=== PATIENT | male | born 1995 | race Caucasian/White ===

== ENCOUNTER 2024-08-08 15:04 | Emergency (ER) | payer OTHER, SELFPAY ==
[2024-08-08 15:05] VITALS: BP 131/94; PULSE 99; RESP 20; TEMP 36.4; O2SAT 100; BMI 25.0
--- NOTE | 2024-08-08 15:25 | CM.ED ---
Social Work Date of referral: 08/08/2024 Reason for referral: No established PCP Referred by: Social Work Identification Patient provided consent to social work visit. Patient confirmed he is not established with a PCP. Bottle Dealer provided patient with a resource for PCP through [facility] which patient accepted. Elli Mattson, CONSULTING DATABASE ADMINISTRATOR, BOOKSTORE MANAGER
--- NOTE | 2024-08-08 15:43 | CT_ITS ---
PROCEDURE: BRAIN/HEAD WITHOUT CONTRAST 08/08/2024 REASON FOR EXAM: VILLEGAS TECHNIQUE: Head CT without intravenous contrast. Coronal and Sagittal reconstruction series were provided. One or more dose reduction techniques were used (e.g., Automated exposure control, adjustment of the mA and/or kV according to patient size, use of iterative reconstruction technique. COMPARISON: None FINDINGS: * ACUTE: No acute infarct or hemorrhage. No mass effect or herniation. * BRAIN PARENCHYMA: Signal intensities are within normal limits for age. * VENTRICLES/EXTRA-AXIAL SPACES: No hydrocephalus or extra-axial fluid collections. * EXTRACRANIAL STRUCTURES: Visualized osseous structures are normal. Soft tissues are normal. CT/Brain/Head without Contrast IMPRESSION: No acute intracranial abnormality. Reading [facility]
[2024-08-08] MEDS: Fluorescein 1 MG STRIP 1 STRIP OPHTHALMIC (15:45)
[2024-08-08] MEDS: Tetracaine 0.5% Ophthalmic Bottle 1 DRP OPHTHALMIC (15:45)
--- NOTE | 2024-08-08 15:55 | EX.ED.VIS.EY ---
HPI History of Present Illness Chief Complaint: Eye Problem Narrative Narrative: Chief complaint and HPI: 28-year-old male who is a type I diabetic presents for evaluation of pressure behind the bilateral eyes. Patient states that yesterday while working he developed pressure behind the eyes and headache. He states he became nauseous and had an episode where his vision went dark and he felt lightheaded. He states this was short-lived. He did not fall. Did not lose consciousness. Patient states that he left work. He states since then he has had pressure behind his bilateral eyes, mild headache, and nasal congestion. He denies any fever, chills, shortness of breath, chest pain, cough, tinnitus, ear pain. States his vision has been normal today. Patient states he has not seen an eye doctor since 2014. Review of systems: See HPI Medications: As listed on the chart Allergies: As listed on the chart PFSH: Per chart Vital signs: As listed on the chart. Reviewed. Physical exam: Gen: A&O x3, NAD Head: Normocephalic, atraumatic Eye: No periorbital swelling or ecchymosis, PERRL, no proptosis, no pain with extra ocular movements, EOMI intact, no lacerations, no sclera chemosis or injection, no foreign body, no teardrop pupil, no enophthalmos. Clear breath reflexes bilaterally with discomfort. Discs are sharp and well-defined. No evidence of swelling or pallor. No hemorrhages or exudates. Macula appears normal.A fluorescein dye was instilled bilaterally and under UV light no uptake was identified in either eye, negative Seidels sign. Intraocular pressures were 17 bilaterally. Visual Acuity 20/25 bilaterally. I did an ultrasound of the bilateral orbits at bedside. Unremarkable without retinal detachment, vitreous abnormality, or lens abnormality. Optic nerve sheath measured 3 mm bilaterally. ENT: TMs clear BL, moist mucous membranes, posterior oropharynx unremarkable, uvula midline, tonsils not enlarged, no tonsillar exudates, + nasal congustion, sinus tenderness to palpation over the frontal and maxillary sinuses. Neck: Trachea midline, No JVD, Full ROM, No meningismus CV: RRR, no murmurs, no peripheral edema Resp: Lungs CTA BL, no w/r/c GI: Abd soft, non-distended, non-tender, no r/r/g Musc: Full ROM, no deformity Skin: Warm, dry, no rash Neuro: Alert, oriented, grossly intact, sensation intact Psych: Cooperative, appropriate mood and affect [facility] Medical History (Updated 08/08/24 @ 16:[address] Jeffrey Lara, ) Diabetes 1.5, managed as type 1 Home Medications ?Medication ?Instructions ?Recorded ?Last Taken ?Type amoxicillin 875 mg-potassium 1 tab PO BID 10 days #20 tabs 08/08/24 Unknown Rx clavulanate 125 mg tablet insulin glargine 100 unit/mL 40 unit subcut DAILY 08/08/24 Unknown History subcutaneous solution (Lantus U-100 Insulin) Allergy/AdvReac Type Severity Reaction Status Date / Time No Known Allergies Allergy Verified 08/08/24 15:17 Social History Smoking Status: Current every day smoker tobacco type: e-cigarettes EXAM Physical Exam Const Vital Signs: 08/08/24 15:05 Temperature 97.5 F L Temperature Source Temporal Pulse Rate 99 Respiratory Rate 20 H Blood Pressure 131/94 H Blood Pressure Mean 106 Pulse Ox 100 Oxygen Delivery Method Room Air MDM MDM MDM Narrative Medical decision making narrative: 28-year-old male who is a type I diabetic presents for evaluation of pressure behind the bilateral eyes. Associated symptom is mild headache and nasal congestion. Also endorses a presyncopal episode that happened yesterday but not today. Patient has not seen an eye doctor since 2014 despite him being diabetic. His sugar is mildly elevated currently in the low 200s. Patient states that he did eat a meal prior to arrival and did not correct for this meal yet. This is likely the cause of his glucose. See physical exam findings. Eye exam is completely unremarkable. Visual acuity 20/25. Physical exam is unremarkable except for some sinus congestion and sinus tenderness. I suspect that his symptoms are likely secondary to a sinus infection. However given patient did have a presyncopal episode where he states he lost his vision for short amount of time will get CT head to rule out any intracranial abnormality although low suspicion. CT head negative for any acute intracranial abnormality. At this point in time, I suspect patient's symptoms are secondary to sinusitis. Will treat with Augmentin. First dose given here. He was told to follow-up with PCP and ophthalmology. He confirmed understanding of plan. Return precautions explained. Impression: 1. Sinusitis 2. Bilateral eye pressure Discharge Plan Triage Chief Complaint: Eye Problem ED Provider: Jeffrey Lara Dx/Rx/DC Orders Clinical Impression: Sinusitis, Concern about eye disease without diagnosis Instructions: ED Sinusitis (Antibiotic Treatment) Prescriptions: New amoxicillin-pot clavulanate 875-125 mg tablet 1 tab PO BID 10 Days Qty: 20 0RF No Action insulin glargine [Lantus U-100 Insulin] 100 unit/mL solution 40 unit subcut DAILY Primary Care Provider: Care Physician,No Primary Referrals: Marlon Thornton MD [Med Staff - Active Staff] - 3-5 Days Rafael Chun MD [Med Staff - Active Staff] - 3-5 Days Activity Restrictions/Additional Instructions: Tylenol and ibuprofen as needed for pain headache. Take all of your antibiotics. Take your next antibiotic this evening. Follow-up with the eye doctor as well as PCP. Return back to the ED if symptoms change worsen. Print Language: Citizen Of [place] Disposition Disposition: Home, Self Care
[2024-08-08] MEDS: Amox/Clavulanate 875 MG Tablet PO (17:02)
[2024-08-08 17:07] VITALS: BP 134/90; BP 135/90; PULSE 99; RESP 16; TEMP 36.6; O2SAT 97
[2024-08-08 17:49] LABS: Bedside Glucose 274 mg/dL (74-106)
== END 2024-08-08 17:08 | disposition home or self-care (01) ==
PROVIDERS: Emergency Provider Surgery; Visit Provider Surgery
DX: J32.9 Chronic sinusitis, unspecified (principal); E13.9 Other specified diabetes mellitus without complications; Z79.4 Long term (current) use of insulin; H57.89 Other specified disorders of eye and adnexa; F17.290 Nicotine dependence, other tobacco product, uncomplicated; Z91.199 Patient's noncompliance with other medical treatment and regimen due to unspecified reason
CPT/HCPCS: 70450; 82962; 99283

== ENCOUNTER 2024-12-08 17:12 | Emergency (ER) | payer SELFPAY ==
[2024-12-08 17:13] VITALS: BP 136/112; PULSE 109; RESP 18; TEMP 36.7; O2SAT 99; BMI 25.9
--- NOTE | 2024-12-08 18:30 | RAD_ITS ---
PROCEDURE: WRIST MIN 3 VIEWS 12/08/2024 REASON FOR EXAM: INJURY/PAIN TECHNIQUE: Procedure Code: RADWR Modality: DX Procedure: WRIST MIN 3 VIEWS Laterality: Right COMPARISON: None. FINDINGS: Bones: No acute bony abnormalities. Joints: No dislocations. Soft tissues: No soft tissue abnormalities. Other: RAD/Wrist min 3 Views IMPRESSION: No acute osseous abnormalities. Reading Location: [id number]
[2024-12-08 18:48] VITALS: BP 127/90; PULSE 92; RESP 18; TEMP 36.8; O2SAT 99
[2024-12-08] MEDS: Lidocaine 1% (20 ml mdv) 20 ML Vial INFILT (18:51)
[2024-12-08 18:53] LABS: Hematocrit 44.6 % (40-54); Hemoglobin 15.2 g/dL (13.0-16.5); Immature Granulocytes Count 0.030 X10^3/uL (0.0-0.0); Mean Corp Hgb Conc 34.1 g/dL (32-36); Mean Corpuscular Volume 86.3 fL (80-94); Mean Platelet Vol. 9.7 fl (6.2-12.0); NRBC Flagged by Analyzer 0 % (0-5); Platelet Count 388 K/mm3 (150-450); RBC Distribution Width CV 13.8 % (11.6-14.6); RBC Distribution Width SD 44.1 fl (35.1-43.9); Red Blood Count 5.17 M/mm3 (4.6-6.2); White Blood Count 9.1 K/mm3 (4.4-11.0)
[2024-12-08 19:00] VITALS: BP 124/81; PULSE 83; RESP 16; TEMP 36.6; O2SAT 99
[2024-12-08 19:27] LABS: Anion Gap 10 (5-15); BUN 16 mg/dL (4-19); BUN/Creat Ratio 18.0 RATIO (10-20); Calcium,Total 8.9 mg/dL (7.6-11.0); Carbon Dioxide 26.4 mmol/L (21.0-32.0); Chloride 98 mmol/L (98-108); Estimated Creatinine Clearance 141.61 ml/min (50-250); Glucose 220 mg/dL (70-99); Potassium 3.9 mmol/L (3.3-5.1)
--- NOTE | 2024-12-08 19:54 | EX.ED.DYSGE1 ---
HPI History of Present Illness Chief Complaint: General Illness Detail of Chief Complaint: Infected puncture wound volar surface right wrist Onset/Context/Timing Onset: Weeks (Puncture wound 3 weeks ago. Trouble with blood sugars past couple of days and infected now.) Quality: Purulent drainage puncture wound Location: Volar right wrist Current Severity: Mild Maximum Severity: Mild Worsened by: Patient has problems with healing due to diabetes. Blood sugar elevated Relieved by: Nothing Associated Symptoms Associated Symptoms: Elevated blood sugar from baseline Narrative Narrative: Patient is a 29-year-old slvrz-oqqt-uwxznolk male. He had a puncture wound to his right wrist that occurred 3 weeks ago. He is concerned may be retained metallic foreign body. He states he has had increased pain over the wrist. There is now some slight redness swelling and drainage. He states his blood sugars normally run low 100s. They been running greater than 200. He is concerned that he is getting a systemic infection. He denies traumatic fever, heart murmur or mitral valve prolapse. He has no history of drug use. He has had prior history of wounds have taken excess amount of time to heal because of his diabetes. Prior similar symptoms: Yes Recent Illness/Hospitalization: No [facility] Medical History Foreign body in left lower extremity Bursitis of left shoulder Diabetes 1.5, managed as type 1 Home Medications ?Medication ?Instructions ?Recorded ?Last Taken ?Type amoxicillin 875 mg-potassium 1 tab PO BID 10 days #20 tabs 08/08/24 Unknown Rx clavulanate 125 mg tablet insulin glargine 100 unit/mL 40 unit subcut DAILY 08/08/24 Unknown History subcutaneous solution (Lantus U-100 Insulin) Allergy/AdvReac Type Severity Reaction Status Date / Time No Known Allergies Allergy Verified 12/08/24 17:15 Surgical History S/P arthroscopic partial medial meniscectomy of right knee History of tonsillectomy Social History Smoking Status: Current every day smoker tobacco type: e-cigarettes ROS ROS ED Constitutional Constitutional ED: Reports fever(s) and subjective; Denies chills or sweats Eyes Eyes: Denies blurry vision or change in vision Cardiovascular Cardiovascular: Denies palpitations or racing heartbeat Respiratory/Chest Respiratory/Chest: Denies cough or dyspnea Gastrointestinal Gastrointestinal: Denies nausea or vomiting Genitourinary Genitourinary ED: Denies dysuria, hematuria or urinary frequency Integumentary Reports abscess and rash Neurologic Neurologic: Denies headache(s), paresthesias or weakness Hematologic/Lymphatic Hematologic/Lymphatic: Reports systems reviewed and no addt'l complaints, except as documented EXAM Physical Exam Const Vital Signs: 12/08/24 17:13 12/08/24 17:34 12/08/24 18:48 Temperature 98.1 F 98.2 F Temperature Source Oral Oral Pulse Rate 109 H 92 Respiratory Rate 18 18 Respiratory Effort Normal Non-Labored Respiratory Pattern Normal Blood Pressure 136/112 H 127/90 H Blood Pressure Mean 120 102 Pulse Ox 99 99 Oxygen Delivery Method Room Air Room Air 12/08/24 19:00 Temperature 97.9 F Temperature Source Oral Pulse Rate 83 Respiratory Rate 16 Respiratory Effort Respiratory Pattern Blood Pressure 124/81 H Blood Pressure Mean 95 Pulse Ox 99 Oxygen Delivery Method Room Air Positive well nourished and well developed Constitutional Narrative: Vital signs noted and unremarkable. General Appearance ED: well developed and NAD HEENT Reports moist mucous membranes HEENT Narrative: Head is atraumatic normocephalic. Ears normal. Nares patent. Eyes PERRL and EOMs intact bilaterally General Eye ED: Negative for pale conjunctiva or scleral icterus Neck no lymphadenopathy and supple Resp normal respiratory effort and clear to auscultation bilaterally Cardio regular rate, regular rhythm, S1 normal heart sound, S2 normal heart sound and no murmurs Extremity Negative for normal to inspection Extremity Narrative: Patient has an eschar with fluctuance noted under the eschar and surrounding erythema. There is no lymphangitis. There is no epitrochlear or axillary lymphadenopathy. Median, radial and ulnar nerve function intact. He has no pain with passive flexion or extension of his fingers. Neuro oriented x3 and CN's II-XII intact bilaterally Sensorium / Orientation: alert Motor Exam: strength 5/5 throughout Psych mental status grossly normal Skin No no wounds Skin Narrative: Abscess volar surface right wrist MDM MDM MDM Narrative Medical decision making narrative: Since patient is diabetic with elevated blood sugars we will obtain BMP to assess glucose and CO2 anion gap and renal function to determine if antibiotic doses need to be adjusted. Also obtain CBC because of it complaint of subjective fever. Lab Data Attestation: I reviewed the patient's lab results. Lab results narrative: CBC is unremarkable. Basic metabolic panel was elevated glucose of 220 with a normal CO2 and anion gap. Labs: Laboratory Results - last 24 hr 12/08/24 18:39 WBC 9.1 RBC 5.17 Hgb 15.2 Hct 44.6 MCV 86.3 MCH 29.4 MCHC 34.1 RDW Std Deviation 44.1 H RDW Coeff of Efra 13.8 Plt Count 388 MPV 9.7 Immature Gran % (Auto) 0.300 Neut % (Auto) 59.4 Lymph % (Auto) 27.1 [place] % (Auto) 8.8 Eos % (Auto) 3.7 Baso % (Auto) 0.7 Absolute Neuts (auto) 5.4 Absolute Lymphs (auto) 2.47 Nucleated RBC % 0 Sodium 135 Potassium 3.9 Chloride 98 Carbon Dioxide 26.4 Anion Gap 10 BUN 16 Creatinine 0.86 Estim Creat Clear Calc 141.61 Est GFR (MDRD) Non-Af 122 BUN/Creatinine Ratio 18.0 Glucose 220 H Calcium 8.9 Radiography Chest X-Ray - ED: Read by ED Physician (Three-view x-ray of the right wrist reveals no foreign body.) Diagnostic Testing: Clinical Impression(s) from Imaging Studies Wrist X-Ray 12/08/24 18:30 IMPRESSION: No acute osseous abnormalities. Reading Location: [facility] Procedures Other Procedures Procedure(s): I&D abscess volar surface right wrist: Patient was prepped draped sterile manner. The area was anesthetized. He required additional anesthetic once the eschar was unroofed. There was purulent material. Culture was obtained. The wound was debrided down to viable tissue. The wound was irrigated with normal saline. Nurse applied dressing. He was treated with cephalexin and Bactrim to cover for both streptococcal and staphylococcal infection and MRSA. Discharge Plan Triage Chief Complaint: General Illness Other Complaint: Wound ED Provider: Colby Keller Dx/Rx/DC Orders Clinical Impression: Cutaneous abscess of right wrist, Type 1 diabetes mellitus with hyperglycemia Instructions: ED Abscess Incision And Drainage Prescriptions: No Action insulin glargine [Lantus U-100 Insulin] 100 unit/mL solution 40 unit subcut DAILY amoxicillin-pot clavulanate 875-125 mg tablet 1 tab PO BID 10 Days Qty: 20 0RF Stand Alone Forms: ED Work / School Excuse Primary Care Provider: Care Physician,No Primary Referrals: Care Physician,No Primary [Primary Care Provider, Medical] Doctor,Your [Non-Staff, None] Activity Restrictions/Additional Instructions: 1. Keep wound absolutely clean and dry for the next 48 hours. 2. Take antibiotics till gone. 3. Follow-up with your doctor for wound check in 2 to 3 days Print Language: Icelandic Disposition Disposition: Home, Self Care
[2024-12-08] MEDS: Smz/Tmp Ds Tablet 1 TABLET PO (20:13)
[2024-12-08 20:16] VITALS: BP 132/74; PULSE 78; RESP 16; TEMP 36.6; O2SAT 99
== END 2024-12-08 20:17 | disposition home or self-care (01) ==
PROVIDERS: Emergency Provider Emergency Medicine; Visit Provider Emergency Medicine
DX: L02.413 Cutaneous abscess of right upper limb (principal); E10.65 Type 1 diabetes mellitus with hyperglycemia; F17.290 Nicotine dependence, other tobacco product, uncomplicated
CPT/HCPCS: 10060; 73110; 80048; 85025; 87070; 87077; 87186; 87205; 99285

== ENCOUNTER 2025-01-04 09:43 | Inpatient (IN) | payer SELFPAY ==
[2025-01-04] VITALS (16 sets, daily range): BP systolic 113–147; BP diastolic 66–100; PULSE 73–101; RESP 13–22; TEMP 36.4–36.7; O2SAT 97–100; BMI 26.0; BMI 25.7
--- NOTE | 2025-01-04 09:51 | EX.ED.DYSGE1 ---
HPI History of Present Illness Chief Complaint: Hyperglycemia Narrative Narrative: 29-year-old male presents with nausea and vomiting and concern for DKA. He is an insulin-dependent diabetic and states that he usually takes 41 units of his long-acting insulin in the morning and is on sliding scale otherwise. He states last time he was in DKA was about a year ago when he was hospitalized at [facility]. Yesterday morning he woke at 330 with nausea and vomiting. He states that his blood sugar was elevated in the 600s. He slowly brought it down by himself. This morning it was appropriate at 144. This was before he ate breakfast. He took his long-acting insulin, ate breakfast, and when he checked it at work it was in the 400s. He is nauseated but has not vomited today. He states he does not feel well. He thinks he may be close to being in diabetic ketoacidosis. Prior similar symptoms: Yes PFSH PFS Medical History Foreign body in left lower extremity Bursitis of left shoulder Diabetes 1.5, managed as type 1 Home Medications Medication Instructions Recorded Last Taken Type insulin glargine 100 unit/mL 40 unit subcut DAILY diabetes 08/08/24 Unknown History subcutaneous solution (Lantus U-100 Insulin) Allergy/AdvReac Type Severity Reaction Status Date / Time No Known Allergies Allergy Verified 01/04/25 09:44 Surgical History S/P arthroscopic partial medial meniscectomy of right knee History of tonsillectomy Social History Smoking Status: Current every day smoker tobacco type: e-cigarettes ROS ROS ED ROS Narrative Review of systems positive for nausea and vomiting yesterday-resolved. Elevated blood sugars yesterday and today. No fevers or chills. Generalized fatigue and malaise. EXAM Physical Exam Narrative Exam Narrative: Afebrile. Vital signs noted. Nontoxic-appearing. Cardiovascular examination reveals mild tachycardia at 101 bpm. Lungs are clear to auscultation bilaterally. Minimal tachypnea. Abdomen is soft and nontender without guarding or rebound. Mucous membranes slightly tacky to moist. Neurological examination nonfocal, nonlateralizing. Moves all extremities. Const Vital Signs: 01/04/25 09:43 01/04/25 10:20 Temperature 97.6 F L Temperature Source Temporal Pulse Rate 101 H Respiratory Rate 20 H Respiratory Pattern Normal Blood Pressure 147/100 H Blood Pressure Mean 115 Pulse Ox 99 Oxygen Delivery Method Room Air MDM MDM MDM Narrative Medical decision making narrative: Differential diagnosis includes but not limited to diabetic hyperglycemia versus dehydration versus diabetic ketoacidosis. He may have other electrolyte abnormality as well. Patient bolused normal saline 1 L intravenously. DKA workup was pursued. This includes venous blood gas. I reviewed his venous blood gas and he has a pH of 7.4 and is not acidotic. I reviewed his laboratory work and he has normal white count of 7.4 with hemoglobin 14.5, platelet count normal at 365. CMP is consistent with hyperglycemia with a glucose of 723 resulting in low sodium of 126 and chloride 92. He was started on IV bolus. Potassium 4.5. Alk phos is slightly elevated 158 which I think is nonspecific, beta hydroxybutyric acid is elevated at 1.6. Urinalysis shows 15 ketones but no evidence of infection. EKG was obtained and interpreted by myself independently as normal sinus rhythm at 89 bpm without ectopy or acute ST changes. No STEMI. At this point in time, he is started on an insulin drip at 0.5 units/kg/h. I discussed the patient with Dr. Rizvi for admission to the ICU. Critical care time 31 minutes. Disposition is admit. Patient in stable condition. History & Record Review Discussion w/independent historian: Patient Additional record(s) reviewed:: Prior ED visit Lab Data Attestation: I reviewed the patient's lab results. Labs: Laboratory Results - last 24 hr 01/04/25 01/04/25 09:58 10:34 WBC 7.4 RBC 4.80 Hgb 14.5 Hct 41.8 MCV 87.1 MCH 30.2 MCHC 34.7 RDW Std Deviation 43.8 RDW Coeff of Efra 13.8 Plt Count 365 MPV 10.1 Immature Gran % (Auto) 0.300 Neut % (Auto) 71.1 H Lymph % (Auto) 17.3 L [place] % (Auto) 6.7 Eos % (Auto) 3.9 Baso % (Auto) 0.7 Absolute Neuts (auto) 5.3 Absolute Lymphs (auto) 1.28 Nucleated RBC % 0 Sodium 126 L Potassium 4.5 Chloride 92 L Carbon Dioxide 21.3 Anion Gap 13 BUN 22 H Creatinine 1.01 Estim Creat Clear Calc 120.58 Est GFR (MDRD) Non-Af 105 BUN/Creatinine Ratio 22.1 H Glucose 723 H* Calcium 8.7 Total Bilirubin 0.32 AST 32 ALT 27 Alkaline Phosphatase 158 H Total Protein 6.0 Albumin 3.7 Globulin 2.4 Albumin/Globulin Ratio 1.6 b-Hydroxybutyric mmol/L 1.6 H Urine Color Straw Urine Clarity Clear Urine pH 6.0 Ur Specific [place] 1.010 Urine Protein Negative Urine Glucose (UA) 1000 H Urine Ketones 15 H Urine Occult Blood Negative Urine Nitrite Negative Urine Bilirubin Negative Urine Urobilinogen Normal Ur Leukocyte Esterase Negative Urine RBC 0 SEEN Urine WBC 0-5 SEEN Ur Squamous Epith Cells 0 SEEN Urine Bacteria 0 SEEN Urine Mucus 0 SEEN ABG Data ABG results: ABG 01/04/25 10:13 Specimen Type HERNESTO Sample Site Not entered VBG pH 7.43 H VBG pO2 91 H VBG HCO3 25 VBG Total CO2 26 VBG O2 Sat (Calc) 97 H VBG Base Excess 1 POC Mix VBG pCO2 Pt Tmp 37.4 L O2 Delivery Device Not entered Management Discussion w/another healthcare provider: Hospitalist (Dr. Rizvi) Critical Care Time Critical Care Time: Yes Critical care time (excluding procedures): 30-74 minutes (31), Including time spent:, Discussing w/Patient &/or Family/Semiconductor Assembler, Discussing w/Consultants, Arranging Admission or Transfer and Performing Direct Patient Care at Bedside Discharge Plan Dx/Rx/DC Orders Clinical Impression: Hyperglycemia due to diabetes mellitus, Hyponatremia, Nausea and vomiting Disposition Disposition: [facility] Discharge Date/Time: 01/04/25 12:31
--- NOTE | 2025-01-04 10:00 | EKG12_ITS ---
Test Reason : HYPERGLYCEMIA Blood Pressure : */* mmHG Vent. Rate : 89 BPM Atrial Rate : 89 BPM P-R Int : 142 ms QRS Dur : 92 ms QT Int : 356 ms P-R-T Axes : 59 55 39 degrees QTcB Int : 433 ms Normal sinus rhythm Normal ECG Confirmed by IONA GARCIA, ERIC ([id number]), photograph editor DARLYN HAN ([id number]) on 01/05/2025 10:48:30 AM Referred By: TB Confirmed By: ERIC MONSON MD
[2025-01-04 10:09] LABS: Hematocrit 41.8 % (40-54); Hemoglobin 14.5 g/dL (13.0-16.5); Immature Granulocytes Count 0.020 X10^3/uL (0.0-0.0); Mean Corp Hgb Conc 34.7 g/dL (32-36); Mean Corpuscular Volume 87.1 fL (80-94); Mean Platelet Vol. 10.1 fl (6.2-12.0); NRBC Flagged by Analyzer 0 % (0-5); Platelet Count 365 K/mm3 (150-450); RBC Distribution Width CV 13.8 % (11.6-14.6); RBC Distribution Width SD 43.8 fl (35.1-43.9); Red Blood Count 4.80 M/mm3 (4.6-6.2); White Blood Count 7.4 K/mm3 (4.4-11.0)
[2025-01-04] MEDS: 0.9% Normal Saline (1000mL) 1,000 ML 999 ML IV ×2 (10:16→13:16)
[2025-01-04 10:17] LABS: SITE Not entered; VBG BASE EXCESS 1 mmol/L (-1.0-3.5); VBG PO2 91 mmHg (25-40); VBG SO2 97 % (50-70); VBG TCO2 26 mmol/L (23-33)
[2025-01-04 10:39] LABS: Mucous, Urine 0 SEEN /hpf (<or=2+); Red Blood Cells-Urine 0 SEEN /hpf (0-5); Squamous Epithelial Cells - UA 0 SEEN /hpf (0-5)
[2025-01-04 10:47] LABS: Color, Urine Straw (Yellow); Glucose, Dipstick 1000 mg/dl (Normal); Ketone-Dipstick 15 mg/dl (Negative); Leukocyte Esterase-Dipstick Negative /ul (Negative); Nitrite-Dipstick Negative (Negative); Occult Blood-Urine Negative /ul (Negative); Protein-Dipstick Negative (Negative); Specific Gravity, Urine 1.010 (1.002-1.030); Urine Bilirubin Dipstick Negative (Negative)
[2025-01-04 10:48] LABS: BETA-HYDROXYBUTYRATE 1.6 mmol/L (0.0-0.3)
[2025-01-04 10:50] LABS: AST(SGOT) 32 U/L (<=37); Alanine Aminotransfer ALT/SGPT 27 U/L (<=46); Albumin, Serum 3.7 g/dL (3.5-5.0); Alkaline Phosphatase 158 U/L (40-129); Anion Gap 13 (5-15); BUN 22 mg/dL (4-19); BUN/Creat Ratio 22.1 RATIO (10-20); Calcium,Total 8.7 mg/dL (7.6-11.0); Carbon Dioxide 21.3 mmol/L (21.0-32.0); Chloride 92 mmol/L (98-108); Estimated Creatinine Clearance 120.58 ml/min (50-250); Globulin 2.4 g/dL (2.2-4.2); Glucose 723 mg/dL (70-99); Potassium 4.5 mmol/L (3.3-5.1)
--- NOTE | 2025-01-04 11:45 | ED.RN ---
This Rn called pharmacist Chanda to discuss confusion about insulin drip order. Order showed that drip should be started at 4.357 ml/hr but DKA protocol states that the drip would start at 13.8/hr. Order did show that drip is not for DKA protocol. Chanda stated that she also discussed this with her sports manager and confirmed the dosing and per Dr. Lee's note he wanted insulin drip to start at 0.5unit/kg/hr.
[2025-01-04] MEDS: Insulin Lispro 100 UNIT in 0.9% Normal Saline (100mL Bag) 99 ML CONT INF (11:50)
[2025-01-04] MEDS: KCL 20MEQ in 0.9% NS 20 MEQ/1,000 ML IV.SOLN. 250 MEQ IV (13:33)
[2025-01-04 13:37] LABS: Glucose 600 mg/dL (70-99)
--- NOTE | 2025-01-04 13:40 | NURSING ---
Patient arrived from ED with insulin drip running at 4.4 units/hr, reviewed the nomogram and the insulin orders with Becca vocational coordinator. ED insulin gtt order was for non-DKA and to run at 4.4 units/hr. Insulin drip order from Dr. Rizvi was for DKA, therefore we titrated the insulin drip based on the nomogram for patients' weight and glucose. Insulin drip now running at 13.8 units/hr. Dr. Rizvi made aware.
--- NOTE | 2025-01-04 13:45 | NURSING ---
stat serum glucose from 1245 not resulted until 1340, reviewed nomogram with Becca health education coordinator and called Leonarda clinical bank manager in pharmacy for clarification on correct action with nomogram for insulin drip. After further discussion, decision was made to titrate drip to 10.4 units/hr.
[2025-01-04] MEDS: 0.9% Saline Lock 10 ML Syringe IV ×2 (13:56→21:43)
[2025-01-04] MEDS: Insulin Lispro 100 UNIT in 0.9% Normal Saline (100mL Bag) 99 ML 10.4 UNIT CONT INF (14:10)
[2025-01-04 14:53] LABS: Anion Gap 10 (5-15); Carbon Dioxide 25.1 mmol/L (21.0-32.0); Chloride 101 mmol/L (98-108); Magnesium 1.8 mg/dL (1.5-2.2); Potassium 3.4 mmol/L (3.3-5.1)
[2025-01-04] MEDS: Dext 5%-0.45% NS 1,000 ML 150 ML IV (15:03)
--- NOTE | 2025-01-04 15:17 | HP.PCM.HOS_ITS ---
HPI - General General Date of Admission: 01/04/25 HPI Narrative JOSEPH BELLA, is a 29 M who presents to the hospital with nausea and vomiting. He was feeling unwell over the last 24 to 48 hours so he presented to the hospital because he felt similar to the last time he had DKA. VBG demonstrated a pH of 7.43, beta hydroxybutyrate was 1.6 and electrolytes were fairly unremarkable, he did not have an anion gap acidosis but his blood sugar on admission was over 700. He did have some slight ketones in his urine and his urine glucose was thousand. He received 1 L bolus in the emergency room prior to admission. He denies any recent illnesses he states that he did have a hand infection that was treated 3 weeks ago. FORMERLY [facility] Medical History Foreign body in left lower extremity Bursitis of left shoulder Diabetes 1.5, managed as type 1 Home Medications Medication Instructions Recorded Last Taken Type insulin glargine 100 unit/mL 40 unit subcut DAILY diab etes 08/08/24 Unknown History subcutaneous solution (Lantus U-100 Insulin) Allergy/AdvReac Type Severity Reaction Status Date / Time No Known Allergies Allergy Verified 01/04/25 09:44 Family History (Updated 01/04/25 @ 15:[address] Carmelo Rizvi MD) Other Diabetes Heart disease Surgical History S/P arthroscopic partial medial meniscectomy of right knee History of tonsillectomy Social History Smoking Status: Current every day smoker tobacco type: e-cigarettes ROS Constitutional Constitutional: Reports fatigue and malaise; Denies chills or fever(s) Eyes Eyes: Denies blurry vision ENT HEENT: Denies headache(s) or nasal discharge Cardiovascular Cardiovascular: Denies chest pain, dyspnea on exertion or syncope Respiratory/Chest Respiratory/Chest: Denies cough, shortness of breath at rest or shortness of breath with exertion Gastrointestinal Gastrointestinal: Reports nausea and vomiting; Denies constipation or diarrhea Genitourinary Genitourinary: Denies dysuria Neurologic Neurologic: Denies focal weakness, numbness or tremor(s) Psychiatric Psychiatric: Denies anxiety or depression Vital Signs Vital Signs Vital Signs: 01/04/25 09:43 01/04/25 10:20 01/04/25 11:35 Temperature 97.6 F L 97.9 F Temperature Source Temporal Pulse Rate 101 H 79 Respiratory Rate 20 H 16 Respiratory Effort Respiratory Depth Respiratory Pattern Normal Blood Pressure 147/100 H 127/86 H Blood Pressure Mean 115 99 Blood Pressure Source Blood Pressure Position Blood Pressure Location Pulse Ox 99 100 Oxygen Delivery Method Room Air 01/04/25 12:15 01/04/25 12:15 01/04/25 12:30 Temperature Temperature Source Pulse Rate 80 80 Respiratory Rate 21 H Respiratory Effort Normal Non-Labored Respiratory Depth Normal Respiratory Pattern Normal Blood Pressure 131/85 H Blood Pressure Mean 100 Blood Pressure Source Monitor Blood Pressure Position Semi-Fowlers Blood Pressure Location Left Arm Pulse Ox 97 Oxygen Delivery Method Room Air Room Air 01/04/25 12:30 01/04/25 12:45 01/04/25 13:00 Temperature Temperature Source Pulse Rate 90 82 81 Respiratory Rate 13 18 20 H Respiratory Effort Respiratory Depth Respiratory Pattern Blood Pressure 136/96 H 128/87 H 125/93 H Blood Pressure Mean 109 100 103 Blood Pressure Source Monitor Monitor Monitor Blood Pressure Position Semi-Fowlers Semi-Fowlers Semi-Fowlers Blood Pressure Location Left Arm Left Arm Left Arm Pulse Ox 100 100 100 Oxygen Delivery Method Room Air Room Air Room Air 01/04/25 14:00 Temperature Temperature Source Pulse Rate 92 Respiratory Rate 22 H Respiratory Effort Respiratory Depth Respiratory Pattern Blood Pressure 127/90 H Blood Pressure Mean 102 Blood Pressure Source Monitor Blood Pressure Position Semi-Fowlers Blood Pressure Location Left Arm Pulse Ox 98 Oxygen Delivery Method Room Air Weight Weight: 184 lb 8.43 oz Body Mass Index (BMI) 25.7 Physical Exam Narrative General: Alert, Oriented x3, Cooperative, No apparent distress HEENT: Atraumatic, PERRLA, EOMI, Normocephalic Oral: Dry mucosa Neck: Supple, No JVD Lungs: Clear to auscultation, Normal air movement, No rhonchi, No wheeze, No rales Cardiovascular: Regular rate, Regular Rhythm, Normal S1, Normal S2, No murmurs Abdomen: Soft, Non Tender, Non-Distended, No Hepato-splenomegaly Extremities: No edema, Capillary Refill Less than 3 Seconds Skin: No rashes, No breakdown Musculoskeletal: No Tenderness to Palpation of Joints or Extremities Neurological: No focal neurological deficits, Motor Exam 5/5 strength throughout, Sensory exam intact to light touch and pain Psych/Mental Status: Normal Affect, Appropriate Results Lab / Micro Data 01/04/25 09:58 01/04/25 13:50 Labs: Laboratory Results - last 24 hr 01/04/25 09:58: WBC 7.4, RBC 4.80, Hgb 14.5, Hct 41.8, MCV 87.1, MCH 30.2, MCHC 34.7, RDW Std Deviation 43.8, RDW Coeff of Efra 13.8, Plt Count 365, MPV 10.1, Immature Gran % (Auto) 0.300, Neut % (Auto) 71.1 H, Lymph % (Auto) 17.3 L, [place] % (Auto) 6.7, Eos % (Auto) 3.9, Baso % (Auto) 0.7, Absolute Neuts (auto) 5.3, Absolute Lymphs (auto) 1.28, Nucleated RBC % 0, Sodium 126 L, Potassium 4.5, C hloride 92 L, Carbon Dioxide 21.3, Anion Gap 13, BUN 22 H, Creatinine 1.01, Estim Creat Clear Calc 120.58, Est GFR (MDRD) Non-Af 105, BUN/Creatinine Ratio 22.1 H, Glucose 723 H*, Calcium 8.7, Total Bilirubin 0.32, AST 32, ALT 27, A lkaline Phosphatase 158 H, Total Protein 6.0, Albumin 3.7, Globulin 2.4, Albumin/Globulin Ratio 1.6, b-Hydroxybutyric mmol/L 1.6 H 01/04/25 10:34: Urine Color Straw, Urine Clarity Clear, Urine pH 6.0, Ur Specific [place] 1.010, Urine Protein Negative, Urine Glucose (UA) 1000 H, Urine Ketones 15 H, Urine Occult Blood Negative, Urine Nitrite Negative, Urine Bilirubin Negative, Urine Urobilinogen Normal, Ur Leukocyte Esterase Negative, Urine RBC 0 SEEN, Urine WBC 0-5 SEEN, Ur Squamous Epith Cells 0 SEEN, Urine Bacteria 0 SEEN, Urine Mucus 0 SEEN 01/04/25 11:31: POC Glucose > 500 H* 01/04/25 12:36: POC Glucose > 500 H* 01/04/25 12:45: Glucose 600 H* 01/04/25 13:50: Sodium 136, Potassium 3.4, Chloride 101, Carbon Dioxide 25.1, Anion Gap 10, Phosphorus 2.8, Magnesium 1.8 01/04/25 14:49: POC Glucose 141 H ABG Data ABG results: ABG 01/04/25 10:13 Specimen Type HERNESTO Sample Site Not entered VBG pH 7.43 H VBG pO2 91 H VBG HCO3 25 VBG Total CO2 26 VBG O2 Sat (Calc) 97 H VBG Base Excess 1 POC Mix VBG pCO2 Pt Tmp 37.4 L O2 Delivery Device Not entered Assessment & Plan Assessment/Plan (1) DKA (diabetic ketoacidoses): PLAN: Plan 1. DKA – Continue with DKA protocol with insulin drip and IV fluids – Anion gap is closed however he is still severely hyperglycemic –No leukocytosis or fever to indicate infection – VBG with a pH of 7.43 – Renal function and electrolytes are stable at the moment DVT: Ambulation 60 minutes was spent on direct patient care, including documentation as well as chart review and collaboration with colleagues Charges/Coding Visit Charges Inpatient E&M: 13781 Init Hosp L2
--- NOTE | 2025-01-04 15:48 | CM.ED ---
Social Work SW met with patient due to registration noting to be inactive. Patient stated that he has been at his job for 90 days and he received his insurance card in the mail but wasnt sure when it would actually be active. SW offered to have Medicaid specialist meet with patient, patient declined stating he makes too much money. Registration later confirmed that patients insurance will be active later this month. No further needs at this time. Gabi Johnson, ANIMAL NUTRITION CONSULTANT, BAKERY TEAM MEMBER
[2025-01-04] MEDS: KCL 20MEQ in 0.9% NS 20 MEQ/1,000 ML IV.SOLN. 100 MEQ IV ×2 (16:21→23:10)
[2025-01-04] MEDS: Insulin Glargine-YFGN 100 UNIT/ML Pen 10 UNIT SC (16:57)
[2025-01-05] VITALS (10 sets, daily range): BP systolic 105–128; BP diastolic 71–87; PULSE 74–104; RESP 13–19; TEMP 36.8; O2SAT 94–100; BMI 26.5
[2025-01-05 05:25] LABS: Anion Gap 7 (5-15); BUN 11 mg/dL (4-19); BUN/Creat Ratio 16.6 RATIO (10-20); Calcium,Total 7.9 mg/dL (7.6-11.0); Carbon Dioxide 25.5 mmol/L (21.0-32.0); Chloride 104 mmol/L (98-108); Estimated Creatinine Clearance 181.81 ml/min (50-250); Glucose 236 mg/dL (70-99); Potassium 4.1 mmol/L (3.3-5.1)
[2025-01-05] MEDS: KCL 20MEQ in 0.9% NS 20 MEQ/1,000 ML IV.SOLN. 100 MEQ IV (05:50)
--- NOTE | 2025-01-05 09:06 | DCINST_ITS ---
Discharge Instructions DC O2, CPAP, BIPAP needs Home O2 Discharge instructions: No Dressing / Incision Discharge Activity: Return to Normal Activity Dressing / Incision Call your doctor if you observe: Fever of 101 or Higher, Shortness of breath, Dizziness, Fainting spells, Swelling in the ankles, Chest pain and Increased palpitations (irregular heartbeat) Follow Up Care Test Results: Test results from this visit will be discussed in further detail at your follow- up appointment, if applicable. Discharge Plan Admission Admit Date/Time: 01/04/25 11:03 Attending Provider: Carmelo Rizvi Primary Care Provider: Care PhysicianRadha Primary Instructions Patient Instructions: Diabetes Food Tips Ch, Diabetes Carbs Fats Protein Additional Instructions / Restrictions: Will have you follow-up with primary care here in the area my to help stabilize your blood sugars and ultimately provide you with referral for endocrinology if necessary Discharge Orders/Prescriptions Prescriptions: Continued insulin glargine [Lantus U-100 Insulin] 100 unit/mL solution 40 unit subcut DAILY Referrals / Follow Up: Care Physician,No Primary [Primary Care Provider, Medical] Disposition Disposition (needs filled in before D/C Order can be placed): Home, Self Care
--- NOTE | 2025-01-05 10:16 | CASEMGMT ---
Discharge Planning A list of PCP providers including quality and resource use data and consistent with the patient's preferred geographic region, medical needs, and insurance network was created in [facility] Guide. This list was provided to the RN CM. Jennifer Paiz, Discharge Planning Asst.
[2025-01-05] MEDS: Insulin Glargine-YFGN 100 UNIT/ML Pen 40 UNIT SC (10:45)
--- NOTE | 2025-01-05 10:58 | CASEMGMT ---
LINDA BURLESON ASSESSMENT RN CM to room to meet with patient for initial transition planning/care coordination assessment. LINDA BURLESON introduced self and role at [facility]. Pt voices understanding and consents to assessment at this time. Pt resting in bed in no distress at this time. Pt is A/O at this time and answers all questions appropriately. Care providers, pharmacy, and demographics verified/updated at this time. Strata: 2 PCP: No PCP. Pt provided w/VSC info as well as local Physician's Directory. Pt also provided w/list of [employer] providers in both [place] and [place] areas that was prepared by Jennifer discharge insurance account assistant. Specialists: none Preferred Pharmacy: [facility] [place] Insurance: None currently. Per ED SW, pt's insurance to go into effect 01/15/25. Per pt, it will be [employer]. Prescription Benefit: None currently. LNOK: Sig other, Sugey Garzon is only listed contact. Discussed LNOK. His parents are not living. He states he has 2 living siblings, but has no communication with them. Discussed HCPOA & information provided. Pt does not wish to complete HCPOA at this time. Made aware, if he decides he would like to complete in the future that SW @ [facility] can assist w/this as an out-pt. He voices understanding. Living Arrangements: Lives w/Sugey and their son, who will be turning 1 at the end of the month. Independent. Works full-time. Transportation: Pt states drives self and states no transportation concerns at this time. Carina also drives. Pt confirms he has transportation home. DME: Pt has a functioning glucometer. He is not sure how many strips he has left. He is not sure what the brand of his glucometer is, but states if they are too expensive to purchase for his current glucometer, he is aware of option to purchase another glucometer OTC and OTC strips & states would be able to afford doing that. He has plenty of lancets. Insulin: Pt states he has sufficient supply of Lantus (3 pens remaining), but only has 1 Humalog pen left, and states he is pretty certain he is going to run out of it before his insurance goes into effect. He does not think he has any refills remaining. Call placed to [facility] pharmacy. There are refills remaining on the insulin lispro (Humalog). [place] st[place]ffer is $127. They can apply discount card and cost would be $68. Pt made aware & states this is affordable. The pharmacy also stated they would need to order this medication in & to have pt call to have it filled a couple days before he runs out. Pt made aware. He states would like to have it filled now, to avoid risk of them not getting it in time before he runs out. He states he will go pick it up soon, stating he is pretty sure they will hold it for him for about 5 days. Call placed to the pharmacy and requested insulin lispro to be filled now. They will hold it for him for 10 days. Discharge instructions: Noted pt to continue Lantus @ home as previously taking (40 units daily). Pt states he also takes Humalog SS w/any intake (1 unit/[address] Rizvi made aware & states pt can resume. HHC/SNF:No hx. Pt wishes to return home and states has no concerns with going home today & has no further concerns/needs. PLAN: Home Saman HOBBS RN CM
--- NOTE | 2025-01-05 14:34 | PCM.DC.SUM ---
Providers Date of Admission: 01/04/25 Primary Care Physician: No Primary Care Phys Reason For Visit: DKA Diagnosis Discharge Diagnosis (1) DKA (diabetic ketoacidoses): Status: Acute Code(s): E11.10 - Type 2 diabetes mellitus with ketoacidosis without coma Medications at Discharge Home Medications insulin glargine 100 unit/mL subcutaneous solution (Lantus U-100 Insulin) 40 unit subcut DAILY diabetes 08/08/24 Hospital Course Operations None Procedures None Summary of Care Provided Minutes Spent on Discharge: 32 Hospital Course: Per HPI: JOSEPH BELLA, is a 29 M who presents to the hospital with nausea and vomiting. He was feeling unwell over the last 24 to 48 hours so he presented to the hospital because he felt similar to the last time he had DKA. VBG demonstrated a pH of 7.43, beta hydroxybutyrate was 1.6 and electrolytes were fairly unremarkable, he did not have an anion gap acidosis but his blood sugar on admission was over 700. He did have some slight ketones in his urine and his urine glucose was thousand. He received 1 L bolus in the emergency room prior to admission. He denies any recent illnesses he states that he did have a hand infection that was treated 3 weeks ago. Hospital Course: 1. DKA–29-year-old male with type 1 diabetes presented to the hospital with DKA. He says that he had been taking his insulin but his blood sugars were high the night before and the day of admission. In the ER his blood sugar was over 700 and his beta hydroxybutyrate was 1.6 consistent with DKA. He was given IV fluids and started on the DKA protocol. He did have significant improvement almost immediately after admission, while he was acidotic it was not severe enough to cause an anion gap acidosis. He was transition to subcu insulin a few hours after admission and given a diet. He continued to improve on the day of discharge and request to be discharged today. He did express understanding of the risks and benefits of going home and request to be discharged home. I did ask to meet with our social workers to set up an appointment with a primary care physician so he could have closer monitoring on outpatient basis as well as to receive a referral to endocrinology if necessary. Will plan to continue his long-acting insulin and he states that he does a sliding scale insulin as well at home. Physical Exam Narrative General: Alert, Oriented x3, Cooperative, No apparent distress HEENT: Atraumatic, PERRLA, EOMI, Normocephalic Oral: Moist mucosa Neck: Supple, No JVD Lungs: Clear to auscultation, Normal air movement, No rhonchi, No wheeze, No rales Cardiovascular: Regular rate, Regular Rhythm, Normal S1, Normal S2, No murmurs Abdomen: Soft, Non Tender, Non-Distended, No Hepato-splenomegaly Extremities: No edema, Capillary Refill Less than 3 Seconds Skin: No rashes, No breakdown Musculoskeletal: No Tenderness to Palpation of Joints or Extremities Neurological: No focal neurological deficits, Motor Exam 5/5 strength throughout, Sensory exam intact to light touch and pain Psych/Mental Status: Normal Affect, Appropriate Weight / BMI Weight Weight: 190 lb 1.6 oz Body Mass Index (BMI) 26.5 ABG / Lab / Microbiology Data 01/04/25 09:58 01/05/25 04:25 Laboratory: Laboratory Results - last 24 hr 01/04/25 13:50: Sodium 136, Potassium 3.4, Chloride 101, Carbon Dioxide 25.1, Anion Gap 10, Phosphorus 2.8, Magnesium 1.8 01/04/25 14:49: POC Glucose 141 H 01/04/25 15:35: POC Glucose 110 H 01/04/25 16:23: POC Glucose 114 H 01/04/25 17:44: POC Glucose 282 H 01/04/25 21:33: POC Glucose 256 H 01/05/25 04:25: Sodium 137, Potassium 4.1, Chloride 104, Carbon Dioxide 25.5, Anion Gap 7, BUN 11, Creatinine 0.65 L, Estim Creat Clear Calc 181.81, Est GFR (MDRD) Non-Af 132, BUN/Creatinine Ratio 16.6, Glucose 236 H, Calcium 7.9 01/05/25 08:03: POC Glucose 217 H 01/05/25 10:43: POC Glucose 289 H D/C Instructions Call your doctor if you observe: Fever of 101 or Higher, Shortness of breath, Dizziness, Fainting spells, Swelling in the ankles, Chest pain and Increased palpitations (irregular heartbeat) DC O2, CPAP, BIPAP Needs Home O2 Discharge instructions: No Meaningful Use Info Meaningful Use Meaningful Use Diagnoses (Choose all that apply): None applicable Discharge Plan Admission Admit Date/Time: 01/04/25 11:03 Attending Provider: Carmelo Rizvi Primary Care Provider: Care Physician,No Primary Instructions Patient Instructions: Diabetes Food Tips Ch, Diabetes Carbs Fats Protein Additional Instructions / Restrictions: Will have you follow-up with primary care here in the area my to help stabilize your blood sugars and ultimately provide you with referral for endocrinology if necessary Discharge Orders/Prescriptions Prescriptions: Continued insulin glargine [Lantus U-100 Insulin] 100 unit/mL solution 40 unit subcut DAILY Referrals / Follow Up: Care Physician,No Primary [Primary Care Provider, Medical] Disposition Disposition (needs filled in before D/C Order can be placed): Home, Self Care Charges/Coding Visit Charges Inpatient E&M: 76936 Disch Hosp >30min
== END 2025-01-05 11:11 | disposition home or self-care (01) | DRG 638 ==
LOC: ED 10:59 → ICU 11:21
PROVIDERS: Admitting Provider Family Medicine; Emergency Provider Emergency Medicine; Visit Provider Family Medicine
DX: E10.10 Type 1 diabetes mellitus with ketoacidosis without coma (principal); E87.1 Hypo-osmolality and hyponatremia; F17.290 Nicotine dependence, other tobacco product, uncomplicated; Z79.4 Long term (current) use of insulin
CPT/HCPCS: 80048; 80051; 80053; 81001; 82010; 82803; 82947; 82962; 83735; 84100; 85025; 93005; 99285; A4216

== ENCOUNTER 2025-01-23 21:58 | Emergency (ER) | payer OTHER, SELFPAY ==
[2025-01-23 22:01] VITALS: BP 140/97; PULSE 107; RESP 18; TEMP 36.9; O2SAT 99; BMI 27.3
--- NOTE | 2025-01-23 22:21 | EX.ED.DYSGE1 ---
HPI History of Present Illness Chief Complaint: Hyperglycemia Detail of Chief Complaint: . Labile blood sugar levels Informant: patient Onset/Context/Timing Onset: Weeks (1.5 weeks) Context: Sudden Onset Timing: Intermittent Quality: Patient states after he eats breakfast his blood sugars have been greater t Location: not applicable Current Severity: Gone Maximum Severity: Severe Worsened by: After eating breakfast Relieved by: Sliding scale x 2 Associated Symptoms Associated Symptoms: Sometimes brain fog, blurred vision Narrative Narrative: Patient is a 29-year-old type I diabetic was not seen in endocrinology in 2 years. He has not seen endocrine since he moved to [place]. The past 1.5 weeks has had trouble with blood sugar in the morning. He will take his long-acting insulin, 40 units at approximately 5 AM. He eats breakfast at 5:36 AM. He does attend a 1 ratio of carbs to his morning insulin dose. He states the past week he has had blood sugars go above 400. He uses a sliding scale he was given 2 years ago. If it is still elevated he will give additional insulin. Patient also has concern regarding low testosterone level. Apparently has had problems with intimacy and his girlfriend is concerned. right wrist. Patient was admitted for DKA January 04. He was seen by me for abscess volar surface of his right wrist December 08. Prior similar symptoms: No Recent Illness/Hospitalization: Yes PFSH [facility] Medical History Foreign body in left lower extremity Bursitis of left shoulder Diabetes 1.5, managed as type 1 Home Medications ?Medication ?Instructions ?Recorded ?Last Taken ?Type insulin glargine 100 unit/mL 40 unit subcut DAILY diabetes 08/08/24 Unknown History subcutaneous solution (Lantus U-100 Insulin) insulin glargine 100 unit/mL (3 unit subcut 01/23/25 Unknown History mL) subcutaneous pen (Lantus Solostar U-100 Insulin) insulin lispro 100 unit/mL 5 unit subcut TID 01/23/25 Unknown History subcutaneous pen Allergy/AdvReac Type Severity Reaction Status Date / Time No Known Allergies Allergy Verified 01/23/25 22:01 Family History Other Diabetes Heart disease Surgical History S/P arthroscopic partial medial meniscectomy of right knee History of tonsillectomy Social History (Updated 01/23/25 @ 22:[address] Colby Keller MD) household members: significant other Smoking Status: Current every day smoker tobacco type: e-cigarettes ROS ROS ED Constitutional Constitutional ED: Reports sweats; Denies chills or fever(s) Eyes Eyes: Denies blurry vision, change in vision or diplopia ENT ENT ED: Denies rhinorrhea or sore throat Cardiovascular Cardiovascular: Denies chest pain or palpitations Respiratory/Chest Respiratory/Chest: Denies cough, dyspnea or dyspnea on exertion Musculoskeletal Musculoskeletal: Denies arthralgias or myalgias Integumentary Denies rash Neurologic Neurologic: Denies headache(s) or paresthesias Endocrine Endocrinology: Denies cold intolerance or heat intolerance Hematologic/Lymphatic Hematologic/Lymphatic: Reports systems reviewed and no addt'l complaints, except as documented EXAM Physical Exam Const Vital Signs: 01/23/25 22:01 01/23/25 22:23 Temperature 98.5 F Temperature Source Oral Pulse Rate 107 H Respiratory Rate 18 Respiratory Effort Normal Respiratory Pattern Normal Blood Pressure 140/97 H Blood Pressure Mean 111 Pulse Ox 99 Oxygen Delivery Method Room Air Positive well nourished and well developed General Appearance ED: well developed and NAD HEENT Reports moist mucous membranes HEENT Narrative: Head is atraumatic normocephalic. Ears normal. Nares patent. Eyes PERRL and EOMs intact bilaterally Neck no lymphadenopathy, supple and no JVD Resp normal respiratory effort and clear to auscultation bilaterally Cardio regular rate, regular rhythm, S1 normal heart sound, S2 normal heart sound and no murmurs GI normal to inspection, nondistended, normoactive bowel sounds, non-tender and non-distended Auscultation: normoactive bowel sounds Palpation: soft Extremity normal to inspection Neuro oriented x3 and CN's II-XII intact bilaterally Sensorium / Orientation: alert Psych mental status grossly normal Skin Skin Narrative: Numerous tattoos otherwise unremarkable MDM MDM MDM Narrative Medical decision making narrative: Presently patient's blood sugar 76. He has no symptoms of hypoglycemia. Since he does not have an tester vibrator equipment we will refer him to Dr. Ab Garcia. He can also discuss concerns regarding low T with her. History & Record Review Additional record(s) reviewed:: Prior ED visit and Prior labs Discharge Plan Triage Chief Complaint: Hyperglycemia ED Provider: Colby Keller Dx/Rx/DC Orders Clinical Impression: Poorly controlled type 1 diabetes mellitus, Erectile dysfunction due to diabetes mellitus Instructions: ED Diabetic Hyperglycemia Prescriptions: No Action insulin lispro 100 unit/mL insulin pen 5 unit subcut TID insulin glargine [Lantus Solostar U-100 Insulin] 100 unit/mL (3 mL) insulin pen SUBCUT Patient Comments: ADMINISTER 40 UNITS UNDER THE SKIN EVERY DAY FOR 7 DAYS insulin glargine [Lantus U-100 Insulin] 100 unit/mL solution 40 unit subcut DAILY Primary Care Provider: Care Physician,No Primary Referrals: Ab Garcia MD [Med Staff - Courtesy Staff, Endocrinology] - 3-5 Days Care Physician,No Primary [Primary Care Provider, Medical] Print Language: Swedish Disposition Disposition: Home, Self Care
[2025-01-23 22:33] VITALS: BP 133/85; PULSE 91; RESP 16; TEMP 36.9; O2SAT 100
== END 2025-01-23 22:38 | disposition home or self-care (01) ==
PROVIDERS: Emergency Provider Emergency Medicine; Visit Provider Emergency Medicine
DX: E13.65 Other specified diabetes mellitus with hyperglycemia (principal); Z79.4 Long term (current) use of insulin; E13.69 Other specified diabetes mellitus with other specified complication; N52.1 Erectile dysfunction due to diseases classified elsewhere
CPT/HCPCS: 99282